=== PATIENT | female | born 1965 | race Caucasian/White ===

== ENCOUNTER 2017-12-23 06:00 | Inpatient (IN) | payer BC ==
[~2017-12-23] VITALS: Ht 165.1 cm; Wt 92.0 kg
[2017-12-23] VITALS (20 sets, daily range): BP systolic 67–125; BP diastolic 39–80
[2017-12-23 07:04] LABS: HEMATOCRIT 29.7 % (36.0-46.0); HEMOGLOBIN 10.3 G/DL (11.9-15.5); MCH 32.4 PG (29.0-34.0); MCHC 34.7 G/DL (30.0-36.0); MCV 93.4 FL (83-99); NRBC (%) 0.6 /100 WBC (0-0); PLATELET COUNT 339 K/uL (156-360); RBC DIS.WIDTH-CV 16.4 % (11.8-14.6); RBC DIS.WIDTH-SD 51.1 % (39-53); RED BLOOD COUNT 3.18 M/uL (3.80-5.20); WHITE BLOOD COUNT 8.7 K/uL (4.1-10.2)
[2017-12-23 07:33] LABS: CHLORIDE 111 MEQ/L (99-109); CREATININE 1.1 MG/DL (0.6-1.3); GFR ESTIMATE (CALCULATED) 56 mL/min/; GLUCOSE 68 mg/dL (70-99); POTASSIUM 3.4 MEQ/L (3.7-5.4); SODIUM 137 MEQ/L (136-147); UREA NITROGEN (BUN) 16 mg/dL (9-23)
[2017-12-23 07:52] LABS: ANISOCYTOSIS 2+; BAND NEUTROPHILS 39.5 % (0-8.0); EOSINOPHIL ABS CT 0; LYMPHOCYTES 11.4 % (15.0-45.0); MACROCYTES 2+; MYELOCYTES 0.9 %; NUCLEATED RBC'S 1.8; POLYCHROMASIA 1+; SEG.NEUTROPHILS 41.2 % (46.0-76.0); TARGET CELLS 1+
[2017-12-23] MEDS ORDERED: VITAMIN B-1100 MG PO (07:57)
[2017-12-23] MEDS ORDERED: OLANZAPINE20 MG PO (07:57)
[2017-12-23] MEDS ORDERED: VITAMIN B-6100 MG PO (07:57)
[2017-12-23] MEDS ORDERED: PANTOPRAZOLE SO40 MG PO (07:58)
[2017-12-23] MEDS ORDERED: LEVOTHYROXINE88 MCG PO (07:58)
[2017-12-23] MEDS ORDERED: LEVETIRACETAM500 MG PO (07:58)
[2017-12-23] MEDS ORDERED: SPIRONOLACTONE100 MG PO (07:58)
[2017-12-23] MEDS ORDERED: FLUOXETINE HCL20 MG PO (07:58)
[2017-12-23] MEDS ORDERED: ESZOPICLONE3 MG PO (07:59)
[2017-12-23] MEDS ORDERED: CREON DR 12,001 EAC1 PO (07:59)
[2017-12-23] MEDS ORDERED: SUMATRIPTAN SU100 MG PO (08:00)
[2017-12-23] MEDS ORDERED: VITAMIN D2000 UNI1 PO (08:00)
[2017-12-23] MEDS ORDERED: LYRICA50 MG PO (08:01)
[2017-12-23 08:08] LABS: APPEARANCE CLEAR ((CLEAR)); BILIRUBIN NEGATIVE; BLOOD LARGE; COLOR YELLOW ((YELLOW)); GLUCOSE (STRIP) NEGATIVE; KETONES NEGATIVE; LEUKOCYTES NEGATIVE; NITRITE NEGATIVE; PROTEIN (STRIP) NEGATIVE; SPECIFIC GRAVITY 1.003 (1.000-1.030); UROBILINOGEN 0.2 MG/DL (0.2-1.0)
[2017-12-23 08:17] LABS: BACTERIA RARE /HPF; EPITHELIAL CELLS NONE SEEN /HPF; MUCUS NONE SEEN /LPF; RED BLOOD CELLS 0-5 /HPF (0-5); UCUL ADDED? NO; WHITE BLOOD CELLS 0-5 /HPF (0-5)
[2017-12-23 08:54] LABS: INTER. NORMALIZED RATIO 2.1
[2017-12-23 09:33] LABS: CREATININE 1.1 MG/DL (0.6-1.3); GFR ESTIMATE (CALCULATED) 56 mL/min/; GLUCOSE 60 mg/dL (70-99); UREA NITROGEN (BUN) 15 mg/dL (9-23)
[2017-12-23 09:34] LABS: ALBUMIN < 1.5 G/DL (3.2-4.8); ALKALINE PHOSPHATASE 137 IU/L (3-129); ALT (GPT) 39 IU/L (3-49); AST (GOT) 36 IU/L (2-34); CHLORIDE 115 MEQ/L (99-109); POTASSIUM 3.6 MEQ/L (3.7-5.4); SODIUM 139 MEQ/L (136-147); TOTAL BILIRUBIN 0.6 MG/DL (0.0-1.0); TOTAL PROTEIN 3.2 G/DL (6.4-8.3)
[2017-12-23 10:36] LABS: PTT 43.3 SEC (25-37)
[2017-12-23 11:28] LABS: D-DIMER LATEX NEGATIVE
[2017-12-23 11:38] LABS: FIBRINOGEN 158 mg/dL (150-450)
[2017-12-23 13:34] LABS: COMMENTS - BLOOD GASES A+C+; DEVICE RA; SITE RR; TOTAL RESP RATE 15 resp/min
[2017-12-23 13:35] LABS: BASE EXCESS -14.5 mEq/L (-3 to +3); BICARBONATE 10.8 mEq/L (22-26); METHEMOGLOBIN 1.1 % (0-1.5); O2 SATURATION (CALCULATED) 89.7 % (95-99); PCO2 23 mm Hg (35-45); PO2 63 mm Hg (80-100); pH 7.28 (7.35-7.45)
[2017-12-23 15:29] LABS: CHLORIDE 119 mEq/L (99-109); SODIUM 144 mEq/L (136-147)
[2017-12-23 15:30] LABS: MAGNESIUM 1.2 mg/dL (1.3-2.7)
[2017-12-23 15:35] LABS: CREATININE 0.9 mg/dL (0.6-1.3); GFR ESTIMATE (CALCULATED) > 59 mL/min/; PHOSPHORUS 3.2 mg/dL (2.5-4.9); TROP-I INTERPRETATION NEGATIVE; TROPONIN-I < 0.01 ng/mL (0.0-0.30)
[2017-12-23 15:36] LABS: UREA NITROGEN (BUN) 13 mg/dL (9-23)
[2017-12-23 15:38] LABS: CREATINE KINASE 415 IU/L (1-294)
[2017-12-23 15:40] LABS: GLUCOSE 120 mg/dL (70-99); POTASSIUM 2.6 mEq/L (3.7-5.4)
[2017-12-23 15:57] LABS: BASE EXCESS -15.2 mEq/L (-3 to +3); BICARBONATE 10.1 mEq/L (22-26); PCO2 23 mm Hg (35-45); PO2 377 mm Hg (80-100)
[2017-12-23 15:58] LABS: pH 7.25 (7.35-7.45)
[2017-12-23 16:31] LABS: HIGH-SENS C-REACTIVE PROTEIN > 8.00 MG/DL (0.02-0.20); TRIGLYCERIDES 165 MG/DL (Normal: <150)
[2017-12-23 18:24] LABS: IMMUNOGLOBULIN G 820 MG/DL (650-1600); IMMUNOGLOBULIN M 71 MG/DL (50-300)
[2017-12-23 21:17] LABS: HEMATOCRIT 23.2 % (36.0-46.0); MCH 32.7 PG (29.0-34.0); MCHC 35.3 G/DL (30.0-36.0); MCV 92.4 FL (83-99); PLATELET COUNT 242 K/uL (156-360); RBC DIS.WIDTH-CV 16.6 % (11.8-14.6); WHITE BLOOD COUNT 9.2 K/uL (4.1-10.2)
[2017-12-23 21:28] LABS: CHLORIDE 118 mEq/L (99-109); POTASSIUM 3.1 mEq/L (3.7-5.4); SODIUM 148 mEq/L (136-147)
[2017-12-23 21:30] LABS: GLUCOSE 116 mg/dL (70-99)
[2017-12-23 21:34] LABS: CREATININE 0.8 mg/dL (0.6-1.3); GFR ESTIMATE (CALCULATED) > 59 mL/min/; PHOSPHORUS 3.4 mg/dL (2.5-4.9)
[2017-12-23 21:35] LABS: UREA NITROGEN (BUN) 12 mg/dL (9-23)
[2017-12-23 21:45] LABS: MAGNESIUM 1.7 mg/dL (1.3-2.7)
[2017-12-23 22:20] LABS: ANISOCYTOSIS 2+; BAND NEUTROPHILS 21.3 % (0-8.0); BURR CELLS 1+; EOSINOPHIL ABS CT 0; LYMPHOCYTES 4.6 % (15.0-45.0); METAMYELOCYTES 4.6 %; MONOCYTES 2.8 % (0-9.0); MYELOCYTES 0.9 %; NUCLEATED RBC'S 0.9; PLAT.SUFFICIENCY ADEQUATE; PLATELET CLUMPS PRESENT - PLATELET COUNT APPEARS ADEQUATE; POIKILOCYTOSIS 1+; TARGET CELLS 1+
[2017-12-23 22:21] LABS: HEMOGLOBIN 8.2 G/DL (11.9-15.5); RED BLOOD COUNT 2.51 M/uL (3.80-5.20); SEG.NEUTROPHILS 65.8 % (46.0-76.0)
[2017-12-24] VITALS (7 sets, daily range): BP systolic 80–122; BP diastolic 57–80
[2017-12-24 04:10] LABS: TROP-I INTERPRETATION NEGATIVE; TROPONIN-I < 0.01 ng/mL (0.0-0.30)
[2017-12-24 04:24] LABS: CHLORIDE 120 mEq/L (99-109); POTASSIUM 3.4 mEq/L (3.7-5.4); SODIUM 148 mEq/L (136-147)
[2017-12-24 04:25] LABS: MAGNESIUM 1.6 mg/dL (1.3-2.7)
[2017-12-24 04:26] LABS: GLUCOSE 143 mg/dL (70-99)
[2017-12-24 04:30] LABS: CREATININE 0.8 mg/dL (0.6-1.3); GFR ESTIMATE (CALCULATED) > 59 mL/min/
[2017-12-24 04:31] LABS: UREA NITROGEN (BUN) 11 mg/dL (9-23)
[2017-12-24 08:49] LABS: HEMATOCRIT 22.5 % (36.0-46.0); HEMOGLOBIN 7.7 G/DL (11.9-15.5); MCH 32.5 PG (29.0-34.0); MCHC 34.2 G/DL (30.0-36.0); MCV 94.9 FL (83-99); PLATELET COUNT 210 K/uL (156-360); RBC DIS.WIDTH-CV 17.2 % (11.8-14.6); RBC DIS.WIDTH-SD 53.1 % (39-53); RED BLOOD COUNT 2.37 M/uL (3.80-5.20); WHITE BLOOD COUNT 11.7 K/uL (4.1-10.2)
[2017-12-24 09:22] LABS: ABS NEUTROPHIL COUNT 9.1; ANISOCYTOSIS 3+; BAND NEUTROPHILS 20.4 % (0-8.0); EOSINOPHIL ABS CT 0; LYMPHOCYTES 11.1 % (15.0-45.0); MACROCYTES 3+; METAMYELOCYTES 4.6 %; MONOCYTES 3.7 % (0-9.0); MYELOCYTES 2.8 %; NUCLEATED RBC'S 0.9; PLAT.SUFFICIENCY ADEQUATE; SEG.NEUTROPHILS 57.4 % (46.0-76.0); SMUDGE CELLS 63.9
[2017-12-24 09:23] LABS: ALBUMIN 2.2 G/DL (3.2-4.8); ALKALINE PHOSPHATASE 122 IU/L (3-129); ALT (GPT) 29 IU/L (3-49); AST (GOT) 25 IU/L (2-34); CHLORIDE 117 MEQ/L (99-109); CREATININE 0.9 MG/DL (0.6-1.3); GFR ESTIMATE (CALCULATED) > 59 mL/min/; GLUCOSE 153 mg/dL (70-99); MAGNESIUM 2.1 mg/dl (1.3-2.7); PHOSPHORUS 2.5 mg/dL (2.5-4.9); POTASSIUM 3.5 MEQ/L (3.7-5.4); SODIUM 148 MEQ/L (136-147); UREA NITROGEN (BUN) 11 mg/dL (9-23)
[2017-12-24 09:25] LABS: TOTAL BILIRUBIN 1.6 MG/DL (0.0-1.0); TOTAL PROTEIN 3.9 G/DL (6.4-8.3)
[2017-12-24 23:31] LABS: CHLORIDE 115 mEq/L (99-109); POTASSIUM 3.6 mEq/L (3.7-5.4); SODIUM 146 mEq/L (136-147)
[2017-12-24 23:36] LABS: PHOSPHORUS 2.4 mg/dL (2.5-4.9)
[2017-12-24 23:37] LABS: CREATININE 0.8 mg/dL (0.6-1.3); GFR ESTIMATE (CALCULATED) > 59 mL/min/
[2017-12-24 23:38] LABS: UREA NITROGEN (BUN) 10 mg/dL (9-23)
[2017-12-24 23:42] LABS: GLUCOSE 109 mg/dL (70-99); MAGNESIUM 1.9 mg/dL (1.3-2.7)
[2017-12-25] VITALS: BP 91/69
[2017-12-25 04:00] VITALS: BP 98/74
[2017-12-25 06:43] LABS: HEMATOCRIT 23.2 % (36.0-46.0); HEMOGLOBIN 7.8 G/DL (11.9-15.5); MCH 32.5 PG (29.0-34.0); MCHC 33.6 G/DL (30.0-36.0); MCV 96.7 FL (83-99); PLATELET COUNT 171 K/uL (156-360); RBC DIS.WIDTH-CV 17.6 % (11.8-14.6); RBC DIS.WIDTH-SD 56.8 % (39-53); WHITE BLOOD COUNT 18.2 K/uL (4.1-10.2)
[2017-12-25 07:11] LABS: ABS NEUTROPHIL COUNT 16.4; ANISOCYTOSIS 3+; BAND NEUTROPHILS 17.1 % (0-8.0); EOSINOPHIL ABS CT 0; LYMPHOCYTES 3.6 % (15.0-45.0); MACROCYTES 3+; MONOCYTES 5.4 % (0-9.0); MYELOCYTES 0.9 %; NUCLEATED RBC'S 0.9; PLAT.SUFFICIENCY ADEQUATE; SMUDGE CELLS 15.3; TARGET CELLS 1+
[2017-12-25 07:17] LABS: ALBUMIN 2.7 G/DL (3.2-4.8); ALKALINE PHOSPHATASE 173 IU/L (3-129); ALT (GPT) 23 IU/L (3-49); AST (GOT) 23 IU/L (2-34); CHLORIDE 114 MEQ/L (99-109); CREATININE 0.8 MG/DL (0.6-1.3); GFR ESTIMATE (CALCULATED) > 59 mL/min/; GLUCOSE 120 mg/dL (70-99); MAGNESIUM 1.7 mg/dl (1.3-2.7); PHOSPHORUS 3.2 mg/dL (2.5-4.9); POTASSIUM 3.9 MEQ/L (3.7-5.4); SODIUM 148 MEQ/L (136-147); TOTAL PROTEIN 4.1 G/DL (6.4-8.3); UREA NITROGEN (BUN) 9 mg/dL (9-23)
[2017-12-25 08:00] VITALS: BP 107/63
[2017-12-25 11:07] LABS: INTER. NORMALIZED RATIO 1.3
[2017-12-25 11:09] LABS: PTT 38.5 SEC (25-37)
[2017-12-25 11:26] LABS: DIRECT BILIRUBIN 1.2 mg/dL (0.0-0.3)
[2017-12-25 12:00] VITALS: BP 90/66
[2017-12-25 12:00] LABS: FIBRINOGEN 194 mg/dL (150-450)
[2017-12-25 12:08] LABS: D-DIMER LATEX POSITIVE
[2017-12-25 12:09] LABS: SCHISTOCYTES NONE SEEN
[2017-12-25 16:00] VITALS: BP 85/68
[2017-12-25 17:56] LABS: INTER. NORMALIZED RATIO 1.4
[2017-12-25 17:59] LABS: CHLORIDE 113 mEq/L (99-109); POTASSIUM 3.5 mEq/L (3.7-5.4); SODIUM 146 mEq/L (136-147)
[2017-12-25 18:01] LABS: GLUCOSE 105 mg/dL (70-99)
[2017-12-25 18:02] LABS: MAGNESIUM 1.5 mg/dL (1.3-2.7)
[2017-12-25 18:04] LABS: CREATININE 0.8 mg/dL (0.6-1.3); GFR ESTIMATE (CALCULATED) > 59 mL/min/; PHOSPHORUS 3.2 mg/dL (2.5-4.9)
[2017-12-25 18:05] LABS: UREA NITROGEN (BUN) 10 mg/dL (9-23)
[2017-12-25 18:14] LABS: PTT 166.9 SEC (25-37)
[2017-12-25 20:02] VITALS: BP 81/70
[2017-12-26] VITALS (16 sets, daily range): BP systolic 82–135; BP diastolic 48–94
[2017-12-26 06:08] LABS: MCH 31.7 PG (29.0-34.0); MCHC 32.9 G/DL (30.0-36.0); MCV 96.3 FL (83-99); NRBC (%) 0.1 /100 WBC (0-0); RBC DIS.WIDTH-CV 17.3 % (11.8-14.6); RBC DIS.WIDTH-SD 56.5 % (39-53); RED BLOOD COUNT 2.18 M/uL (3.80-5.20); WHITE BLOOD COUNT 13.9 K/uL (4.1-10.2)
[2017-12-26 06:10] LABS: HEMOGLOBIN 6.9 G/DL (11.9-15.5)
[2017-12-26 06:27] LABS: ALBUMIN 3.1 G/DL (3.2-4.8); ALKALINE PHOSPHATASE 174 IU/L (3-129); ALT (GPT) 21 IU/L (3-49); AST (GOT) 31 IU/L (2-34); CHLORIDE 111 MEQ/L (99-109); CREATININE 0.9 MG/DL (0.6-1.3); GFR ESTIMATE (CALCULATED) > 59 mL/min/; GLUCOSE 108 mg/dL (70-99); MAGNESIUM 1.8 mg/dl (1.3-2.7); PHOSPHORUS 2.8 mg/dL (2.5-4.9); POTASSIUM 3.3 MEQ/L (3.7-5.4); SODIUM 147 MEQ/L (136-147); TOTAL BILIRUBIN 1.6 MG/DL (0.0-1.0); TOTAL PROTEIN 4.2 G/DL (6.4-8.3); UREA NITROGEN (BUN) 10 mg/dL (9-23)
[2017-12-26 06:43] LABS: ABS NEUTROPHIL COUNT 12.3; ANISOCYTOSIS 3+; BAND NEUTROPHILS 25.2 % (0-8.0); BASOPH.STIPPLING 1+; EOSINOPHIL ABS CT 0; HELMET CELLS 1+; LYMPHOCYTES 7.8 % (15.0-45.0); MACROCYTES 3+; MONOCYTES 3.5 % (0-9.0); NUCLEATED RBC'S 1.7; PLAT.SUFFICIENCY DECREASED; POIKILOCYTOSIS 1+; POLYCHROMASIA 1+; SCHISTOCYTES 1+; SEG.NEUTROPHILS 63.5 % (46.0-76.0); TARGET CELLS 2+
[2017-12-26 06:54] LABS: PLATELET COUNT 115 K/uL (156-360)
[2017-12-26 16:17] LABS: CHLORIDE 111 MEQ/L (99-109); CREATININE 0.9 MG/DL (0.6-1.3); GFR ESTIMATE (CALCULATED) > 59 mL/min/; GLUCOSE 121 mg/dL (70-99); POTASSIUM 3.8 MEQ/L (3.7-5.4); SODIUM 147 MEQ/L (136-147); UREA NITROGEN (BUN) 11 mg/dL (9-23)
[2017-12-26 17:57] LABS: HEMATOCRIT 24.4 % (36.0-46.0); HEMOGLOBIN 8.4 G/DL (11.9-15.5)
[2017-12-26 17:58] LABS: MCV 92.1 FL (83-99)
[2017-12-26 18:04] LABS: CHLORIDE 111 mEq/L (99-109); POTASSIUM 3.5 mEq/L (3.7-5.4); SODIUM 146 mEq/L (136-147)
[2017-12-26 18:06] LABS: GLUCOSE 119 mg/dL (70-99)
[2017-12-26 18:09] LABS: PHOSPHORUS 2.6 mg/dL (2.5-4.9)
[2017-12-26 18:10] LABS: GFR ESTIMATE (CALCULATED) > 59 mL/min/
[2017-12-26 18:11] LABS: UREA NITROGEN (BUN) 11 mg/dL (9-23)
[2017-12-26 18:13] LABS: MAGNESIUM 1.8 mg/dL (1.3-2.7)
[2017-12-27] VITALS (12 sets, daily range): BP systolic 94–110; BP diastolic 59–77
[2017-12-27 05:19] LABS: HEMATOCRIT 25.7 % (36.0-46.0); HEMOGLOBIN 8.4 G/DL (11.9-15.5); MCH 30.9 PG (29.0-34.0); MCHC 32.7 G/DL (30.0-36.0); MCV 94.5 FL (83-99); NRBC (%) 0.2 /100 WBC (0-0); PLATELET COUNT 84 K/uL (156-360); RBC DIS.WIDTH-CV 18.2 % (11.8-14.6); RBC DIS.WIDTH-SD 58.5 % (39-53); WHITE BLOOD COUNT 16.8 K/uL (4.1-10.2)
[2017-12-27 05:30] LABS: RED BLOOD COUNT 2.72 M/uL (3.80-5.20)
[2017-12-27 06:20] LABS: ALBUMIN 3.5 G/DL (3.2-4.8); ALKALINE PHOSPHATASE 172 IU/L (3-129); ALT (GPT) 19 IU/L (3-49); AST (GOT) 28 IU/L (2-34); CHLORIDE 107 MEQ/L (99-109); GFR ESTIMATE (CALCULATED) > 59 mL/min/; GLUCOSE 104 mg/dL (70-99); MAGNESIUM 1.6 mg/dl (1.3-2.7); PHOSPHORUS 2.9 mg/dL (2.5-4.9); POTASSIUM 3.3 MEQ/L (3.7-5.4); SODIUM 146 MEQ/L (136-147); TOTAL BILIRUBIN 1.3 MG/DL (0.0-1.0); UREA NITROGEN (BUN) 13 mg/dL (9-23)
[2017-12-27 06:22] LABS: TOTAL PROTEIN 5.1 G/DL (6.4-8.3)
[2017-12-27 07:09] LABS: ABS NEUTROPHIL COUNT 14.9; ANISOCYTOSIS 2+; BAND NEUTROPHILS 29.2 % (0-8.0); EOSINOPHIL ABS CT 0; LYMPHOCYTES 9.7 % (15.0-45.0); MACROCYTES 2+; MICROCYTOSIS 1+; MONOCYTES 1.8 % (0-9.0); SEG.NEUTROPHILS 59.3 % (46.0-76.0); TARGET CELLS 2+
[2017-12-27 07:59] LABS: FERRITIN 150 NG/ML (10-291)
[2017-12-27 08:05] LABS: FOLIC ACID (FOLATE) > 22.0 NG/ML (5.0-22.0)
[2017-12-27 18:21] LABS: CHLORIDE 108 mEq/L (99-109); SODIUM 148 mEq/L (136-147)
[2017-12-27 18:22] LABS: POTASSIUM 2.3 mEq/L (3.7-5.4)
[2017-12-27 18:24] LABS: GLUCOSE 142 mg/dL (70-99)
[2017-12-27 18:27] LABS: CREATININE 1.1 mg/dL (0.6-1.3); GFR ESTIMATE (CALCULATED) 56 mL/min/; PHOSPHORUS 2.5 mg/dL (2.5-4.9)
[2017-12-27 18:28] LABS: UREA NITROGEN (BUN) 16 mg/dL (9-23)
[2017-12-28 01:50] LABS: CHLORIDE 106 mEq/L (99-109); SODIUM 148 mEq/L (136-147)
[2017-12-28 01:55] LABS: CREATININE 1.1 mg/dL (0.6-1.3); GFR ESTIMATE (CALCULATED) 56 mL/min/
[2017-12-28 02:07] LABS: COMMENTS - BLOOD GASES C+; DEVICE VENT; FI02 100 %; MODE BILEVEL; SITE ALINE; pH 7.51 (7.35-7.45)
[2017-12-28 02:08] LABS: BASE EXCESS 6.8 mEq/L (-3 to +3); BICARBONATE 30.3 mEq/L (22-26); CARBOXY HGB 2.1 % (0-5); METHEMOGLOBIN 0.9 % (0-1.5); O2 SATURATION (CALCULATED) 96.1 % (95-99); PCO2 38 mm Hg (35-45); PO2 77 mm Hg (80-100)
[2017-12-28 02:08] LABS: POTASSIUM 3.3 mEq/L (3.7-5.4)
[2017-12-28 02:14] LABS: GLUCOSE 115 mg/dL (70-99)
[2017-12-28 02:19] LABS: UREA NITROGEN (BUN) 17 mg/dL (9-23)
[2017-12-28 06:30] LABS: PTT 63.5 SEC (25-37)
[2017-12-28 06:38] LABS: HEMATOCRIT 28.2 % (36.0-46.0); HEMOGLOBIN 9.3 G/DL (11.9-15.5); MCH 31.1 PG (29.0-34.0); MCV 94.3 FL (83-99); NRBC (%) 0.4 /100 WBC (0-0); PLATELET COUNT 81 K/uL (156-360); RBC DIS.WIDTH-CV 18.1 % (11.8-14.6); RBC DIS.WIDTH-SD 59.9 % (39-53); RED BLOOD COUNT 2.99 M/uL (3.80-5.20); WHITE BLOOD COUNT 18.4 K/uL (4.1-10.2)
[2017-12-28 07:42] LABS: ABS NEUTROPHIL COUNT 16.1; ANISOCYTOSIS 2+; BAND NEUTROPHILS 13.4 % (0-8.0); EOSINOPHIL ABS CT 0; HEMATOLOGY COMMENT 1 SN; HYPOCHROMASIA 1+; LYMPHOCYTES 11.6 % (15.0-45.0); MACROCYTES 2+; MICROCYTOSIS 1+; MONOCYTES 0.9 % (0-9.0); NUCLEATED RBC'S 1.8; PLAT.SUFFICIENCY DECREASED; POLYCHROMASIA 2+; SEG.NEUTROPHILS 74.1 % (46.0-76.0); SPHEROCYTES 1+; TARGET CELLS 2+; TOX.VACUOLIZATION 1+; TOXIC GRANULATION 2+
[2017-12-28 08:35] LABS: ALBUMIN 3.6 G/DL (3.2-4.8); ALKALINE PHOSPHATASE 144 IU/L (3-129); ALT (GPT) 18 IU/L (3-49); AST (GOT) 33 IU/L (2-34); CHLORIDE 105 MEQ/L (99-109); GFR ESTIMATE (CALCULATED) > 59 mL/min/; GLUCOSE 99 mg/dL (70-99); MAGNESIUM 1.7 mg/dl (1.3-2.7); PHOSPHORUS 1.9 mg/dL (2.5-4.9); POTASSIUM 3.5 MEQ/L (3.7-5.4); SODIUM 148 MEQ/L (136-147); TOTAL BILIRUBIN 1.1 MG/DL (0.0-1.0); TOTAL PROTEIN 4.8 G/DL (6.4-8.3); UREA NITROGEN (BUN) 17 mg/dL (9-23)
[2017-12-28 15:10] LABS: DEVICE VENT; FI02 80 %; SITE ALINE
[2017-12-28 15:11] LABS: MECHANICAL RATE 16 resp/min; MODE BILEVEL; PCO2 39 mm Hg (35-45); PRES. SUPPORT 14 CM/H2O; TOTAL RESP RATE 22 resp/min; pH 7.53 (7.35-7.45)
[2017-12-28 15:12] LABS: BASE EXCESS 9.2 mEq/L (-3 to +3); BICARBONATE 32.6 mEq/L (22-26); PO2 307 mm Hg (80-100)
[2017-12-28 15:41] LABS: CHLORIDE 105 mEq/L (99-109); POTASSIUM 3.6 mEq/L (3.7-5.4); SODIUM 149 mEq/L (136-147)
[2017-12-28 15:43] LABS: GLUCOSE 101 mg/dL (70-99)
[2017-12-28 15:47] LABS: CREATININE 1.2 mg/dL (0.6-1.3); GFR ESTIMATE (CALCULATED) 50 mL/min/
[2017-12-28 15:48] LABS: UREA NITROGEN (BUN) 19 mg/dL (9-23)
[2017-12-28 15:53] LABS: PHOSPHORUS 3.4 mg/dL (2.5-4.9)
[2017-12-28 15:54] LABS: MAGNESIUM 2.4 mg/dL (1.3-2.7)
[2017-12-28 16:13] LABS: HIGH-SENS C-REACTIVE PROTEIN > 8.00 MG/DL (0.02-0.20)
[2017-12-28 16:26] LABS: C DIFF TOXIN POSITIVE (NEGATIVE)
[2017-12-28 18:17] LABS: DEVICE VENT; FI02 60 %; MECHANICAL RATE 20 resp/min; MODE ACVC; PEEP 10 CM/H20; SITE ALINE; TIDAL VOLUME 450 ML; TOTAL RESP RATE 33 resp/min
[2017-12-28 18:18] LABS: PCO2 40 mm Hg (35-45); pH 7.55 (7.35-7.45)
[2017-12-28 18:19] LABS: BASE EXCESS 11.6 mEq/L (-3 to +3); CARBOXY HGB 2.5 % (0-5); METHEMOGLOBIN 1.2 % (0-1.5); O2 SATURATION (CALCULATED) 88.1 % (95-99); PO2 49 mm Hg (80-100)
[2017-12-28 23:39] LABS: SITE R FEM ALINE
[2017-12-28 23:40] LABS: DEVICE VENT; FI02 100 %; MECHANICAL RATE 12 resp/min; MODE BILEVEL; PCO2 44 mm Hg (35-45); PEEP 5 CM/H20; PO2 163 mm Hg (80-100); PRES. SUPPORT 14 CM/H2O; TOTAL RESP RATE 26 resp/min; pH 7.53 (7.35-7.45)
[2017-12-28 23:41] LABS: BASE EXCESS 12.9 mEq/L (-3 to +3); BICARBONATE 36.8 mEq/L (22-26); CARBOXY HGB 2.1 % (0-5); O2 SATURATION (CALCULATED) 98.9 % (95-99)
[2017-12-29] VITALS (7 sets, daily range): BP systolic 106–121; BP diastolic 63–84
[2017-12-29 06:37] LABS: HEMATOCRIT 21.6 % (36.0-46.0); MCHC 32.9 G/DL (30.0-36.0); MCV 94.3 FL (83-99); NRBC (%) 0.3 /100 WBC (0-0); PLATELET COUNT 94 K/uL (156-360); RBC DIS.WIDTH-CV 17.7 % (11.8-14.6); RBC DIS.WIDTH-SD 58.2 % (39-53); WHITE BLOOD COUNT 20.8 K/uL (4.1-10.2)
[2017-12-29 06:38] LABS: HEMOGLOBIN 7.1 G/DL (11.9-15.5); RED BLOOD COUNT 2.29 M/uL (3.80-5.20)
[2017-12-29 06:54] LABS: ALBUMIN 3.9 G/DL (3.2-4.8); ALKALINE PHOSPHATASE 156 IU/L (3-129); ALT (GPT) 20 IU/L (3-49); AST (GOT) 36 IU/L (2-34); CHLORIDE 103 MEQ/L (99-109); CREATININE 1.1 MG/DL (0.6-1.3); GFR ESTIMATE (CALCULATED) 56 mL/min/; GLUCOSE 103 mg/dL (70-99); PREALBUMIN 12.2 mg/dL (10-40); SODIUM 155 MEQ/L (136-147); TOTAL BILIRUBIN 0.9 MG/DL (0.0-1.0); TOTAL PROTEIN 5.2 G/DL (6.4-8.3); UREA NITROGEN (BUN) 22 mg/dL (9-23)
[2017-12-29 07:02] LABS: MAGNESIUM 2.1 mg/dl (1.3-2.7); PHOSPHORUS 3.4 mg/dL (2.5-4.9); POTASSIUM 2.2 MEQ/L (3.7-5.4)
[2017-12-29 07:24] LABS: ABS NEUTROPHIL COUNT 19.8; ANISOCYTOSIS 1+; EOSINOPHIL ABS CT 0; LYMPHOCYTES 3.1 % (15.0-45.0); MACROCYTES 1+; METAMYELOCYTES 0.9 %; MICROCYTOSIS 1+; MONOCYTES 0.5 % (0-9.0); MYELOCYTES 0.4 %; PLAT.SUFFICIENCY DECREASED; POIKILOCYTOSIS 2+; POLYCHROMASIA 1+; SEG.NEUTROPHILS 86.1 % (46.0-76.0); SPHEROCYTES 1+; TARGET CELLS 2+
[2017-12-29 08:10] LABS: HEMATOCRIT 22.1 % (36.0-46.0); HEMOGLOBIN 7.6 G/DL (11.9-15.5); MCH 31.9 PG (29.0-34.0); MCHC 34.4 G/DL (30.0-36.0); MCV 92.9 FL (83-99); NRBC (%) 0.3 /100 WBC (0-0); PLATELET COUNT 99 K/uL (156-360); RBC DIS.WIDTH-CV 17.6 % (11.8-14.6); RED BLOOD COUNT 2.38 M/uL (3.80-5.20); WHITE BLOOD COUNT 23.6 K/uL (4.1-10.2)
[2017-12-29 08:51] LABS: ABS NEUTROPHIL COUNT 20.2; ANISOCYTOSIS 2+; BAND NEUTROPHILS 10.6 % (0-8.0); BASOPHILS 0.9 %; EOSINOPHIL ABS CT 0; LYMPHOCYTES 10.6 % (15.0-45.0); MACROCYTES 1+; MONOCYTES 3.1 % (0-9.0); NUCLEATED RBC'S 0.4; PLAT.SUFFICIENCY DECREASED; POIKILOCYTOSIS 2+; POLYCHROMASIA 1+; SEG.NEUTROPHILS 74.8 % (46.0-76.0); SPHEROCYTES 1+; TARGET CELLS 2+; TOXIC GRANULATION 1+
[2017-12-29 15:26] LABS: CHLORIDE 104 MEQ/L (99-109); GFR ESTIMATE (CALCULATED) > 59 mL/min/; GLUCOSE 132 mg/dL (70-99); POTASSIUM 2.7 MEQ/L (3.7-5.4); SODIUM 153 MEQ/L (136-147); UREA NITROGEN (BUN) 25 mg/dL (9-23)
[2017-12-29 18:52] LABS: GFR ESTIMATE (CALCULATED) 56 mL/min/
[2017-12-29 22:16] LABS: CHLORIDE 106 MEQ/L (99-109); GLUCOSE 131 mg/dL (70-99); PHOSPHORUS 2.9 mg/dL (2.5-4.9); POTASSIUM 3.3 MEQ/L (3.7-5.4); SODIUM 153 MEQ/L (136-147); UREA NITROGEN (BUN) 26 mg/dL (9-23)
[2017-12-30] VITALS (17 sets, daily range): BP systolic 102–129; BP diastolic 59–90
[2017-12-30 06:14] LABS: ALBUMIN 3.6 G/DL (3.2-4.8); ALKALINE PHOSPHATASE 154 IU/L (3-129); ALT (GPT) 22 IU/L (3-49); AST (GOT) 31 IU/L (2-34); CHLORIDE 103 MEQ/L (99-109); GFR ESTIMATE (CALCULATED) > 59 mL/min/; GLUCOSE 105 mg/dL (70-99); PHOSPHORUS 2.9 mg/dL (2.5-4.9); POTASSIUM 2.7 MEQ/L (3.7-5.4); SODIUM 153 MEQ/L (136-147); TOTAL BILIRUBIN 0.8 MG/DL (0.0-1.0); TOTAL PROTEIN 5.1 G/DL (6.4-8.3); TRIGLYCERIDES 59 MG/DL (Normal: <150); UREA NITROGEN (BUN) 30 mg/dL (9-23)
[2017-12-30 06:22] LABS: HEMATOCRIT 21.8 % (36.0-46.0); MCH 30.4 PG (29.0-34.0); MCHC 31.7 G/DL (30.0-36.0); NRBC (%) 0.6 /100 WBC (0-0); PLATELET COUNT 118 K/uL (156-360); RBC DIS.WIDTH-CV 17.5 % (11.8-14.6); RBC DIS.WIDTH-SD 56.7 % (39-53); RED BLOOD COUNT 2.27 M/uL (3.80-5.20); WHITE BLOOD COUNT 25.3 K/uL (4.1-10.2)
[2017-12-30 06:25] LABS: HEMOGLOBIN 6.9 G/DL (11.9-15.5)
[2017-12-30 07:10] LABS: ANISOCYTOSIS 1+; ATYPICAL LYMPHOCYTE 0.4 %; BAND NEUTROPHILS 5.2 % (0-8.0); BASOPH.STIPPLING 1+; BASOPHILS 0.4 %; EOSINOPHIL ABS CT 0; HYPOCHROMASIA 2+; MACROCYTES 1+; METAMYELOCYTES 0.9 %; MICROCYTOSIS 1+; MONOCYTES 0.9 % (0-9.0); MYELOCYTES 0.4 %; NUCLEATED RBC'S 0.4; PLAT.SUFFICIENCY DECREASED; POIKILOCYTOSIS 1+; POLYCHROMASIA 1+; SEG.NEUTROPHILS 81.8 % (46.0-76.0); TARGET CELLS 1+
[2017-12-30 08:57] LABS: VANCOMYCIN, TROUGH 13.4 MCG/ML (10-20)
[2017-12-30 14:09] LABS: DIRECT BILIRUBIN 0.4 mg/dL (0.0-0.3)
[2017-12-30 17:15] LABS: CHLORIDE 105 MEQ/L (99-109); GFR ESTIMATE (CALCULATED) > 59 mL/min/; GLUCOSE 135 mg/dL (70-99); POTASSIUM 2.5 MEQ/L (3.7-5.4); SODIUM 152 MEQ/L (136-147); UREA NITROGEN (BUN) 33 mg/dL (9-23)
[2017-12-30 19:07] LABS: ALBUMIN 3.5 G/DL (3.2-4.8); CHLORIDE 106 MEQ/L (99-109); DIRECT BILIRUBIN 0.4 mg/dL (0.0-0.3); POTASSIUM 2.5 MEQ/L (3.7-5.4); SODIUM 155 MEQ/L (136-147); TOTAL BILIRUBIN 0.9 MG/DL (0.0-1.0)
[2017-12-30 19:13] LABS: ALKALINE PHOSPHATASE 158 IU/L (3-129); ALT (GPT) 23 IU/L (3-49); AST (GOT) 33 IU/L (2-34); GFR ESTIMATE (CALCULATED) > 59 mL/min/; GLUCOSE 119 mg/dL (70-99); LACTATE DEHYDROGENASE 483 IU/L (20-246); PHOSPHORUS 2.3 mg/dL (2.5-4.9); TOTAL PROTEIN 5.1 G/DL (6.4-8.3); UREA NITROGEN (BUN) 34 mg/dL (9-23)
[2017-12-31] VITALS (7 sets, daily range): BP systolic 109–129; BP diastolic 66–78
[2017-12-31 02:24] LABS: HEMATOCRIT 24.2 % (36.0-46.0); HEMOGLOBIN 7.8 G/DL (11.9-15.5); MCV 92.4 FL (83-99)
[2017-12-31 05:50] LABS: HEMATOCRIT 24.8 % (36.0-46.0); HEMOGLOBIN 7.9 G/DL (11.9-15.5); MCH 29.4 PG (29.0-34.0); MCHC 31.9 G/DL (30.0-36.0); MCV 92.2 FL (83-99); NRBC (%) 0.6 /100 WBC (0-0); PLATELET COUNT 132 K/uL (156-360); RBC DIS.WIDTH-CV 21.7 % (11.8-14.6); RBC DIS.WIDTH-SD 69.6 % (39-53); RED BLOOD COUNT 2.69 M/uL (3.80-5.20); WHITE BLOOD COUNT 22.3 K/uL (4.1-10.2)
[2017-12-31 06:25] LABS: ALBUMIN 3.5 G/DL (3.2-4.8); ALKALINE PHOSPHATASE 164 IU/L (3-129); ALT (GPT) 23 IU/L (3-49); AST (GOT) 31 IU/L (2-34); CHLORIDE 109 MEQ/L (99-109); GFR ESTIMATE (CALCULATED) > 59 mL/min/; GLUCOSE 158 mg/dL (70-99); PHOSPHORUS 2.5 mg/dL (2.5-4.9); SODIUM 154 MEQ/L (136-147); TOTAL PROTEIN 4.9 G/DL (6.4-8.3); UREA NITROGEN (BUN) 35 mg/dL (9-23)
[2017-12-31 06:31] LABS: POTASSIUM 3.1 MEQ/L (3.7-5.4)
[2017-12-31 07:23] LABS: ABS NEUTROPHIL COUNT 20.3; BAND NEUTROPHILS 4.4 % (0-8.0); BASOPHILS 0.9 %; EOSINOPHIL ABS CT 0; LYMPHOCYTES 6.2 % (15.0-45.0); METAMYELOCYTES 0.9 %; MONOCYTES 0.9 % (0-9.0); NUCLEATED RBC'S 0.9; SEG.NEUTROPHILS 86.7 % (46.0-76.0); SMUDGE CELLS 12.4
[2017-12-31 18:46] LABS: CHLORIDE 113 MEQ/L (99-109); POTASSIUM 2.9 MEQ/L (3.7-5.4); SODIUM 156 MEQ/L (136-147)
[2017-12-31 18:54] LABS: GFR ESTIMATE (CALCULATED) > 59 mL/min/; GLUCOSE 166 mg/dL (70-99); PHOSPHORUS 2.1 mg/dL (2.5-4.9); UREA NITROGEN (BUN) 38 mg/dL (9-23)
[2017-12-31 22:21] LABS: ALBUMIN 3.6 G/DL (3.2-4.8); ALKALINE PHOSPHATASE 148 IU/L (3-129); ALT (GPT) 22 IU/L (3-49); AST (GOT) 27 IU/L (2-34); CHLORIDE 113 MEQ/L (99-109); GFR ESTIMATE (CALCULATED) > 59 mL/min/; GLUCOSE 155 mg/dL (70-99); POTASSIUM 3.1 MEQ/L (3.7-5.4); SODIUM 157 MEQ/L (136-147); TOTAL BILIRUBIN 0.8 MG/DL (0.0-1.0); TOTAL PROTEIN 5.3 G/DL (6.4-8.3); UREA NITROGEN (BUN) 39 mg/dL (9-23)
[2018-01-01] VITALS (28 sets, daily range): BP systolic 62–138; BP diastolic 30–88
[2018-01-01 06:10] LABS: COMMENTS - BLOOD GASES C+; SITE A-LINE
[2018-01-01 06:11] LABS: BASE EXCESS -6.2 mEq/L (-3 to +3); BICARBONATE 15.3 mEq/L (22-26); DEVICE VENT; FI02 30 %; INSPIRATION TIME 0.8 seconds; MECHANICAL RATE 18 resp/min; MODE ACVC+; PCO2 21 mm Hg (35-45); PEEP 5 CM/H20; PO2 162 mm Hg (80-100); TIDAL VOLUME 450 ML; TOTAL RESP RATE 36 resp/min; pH 7.47 (7.35-7.45)
[2018-01-01 06:16] LABS: ALBUMIN 2.7 G/DL (3.2-4.8); ALKALINE PHOSPHATASE 131 IU/L (3-129); ALT (GPT) 18 IU/L (3-49); AST (GOT) 22 IU/L (2-34); CHLORIDE 114 MEQ/L (99-109); GFR ESTIMATE (CALCULATED) > 59 mL/min/; MAGNESIUM 2.1 mg/dl (1.3-2.7); SODIUM 156 MEQ/L (136-147); TOTAL BILIRUBIN 0.7 MG/DL (0.0-1.0); UREA NITROGEN (BUN) 38 mg/dL (9-23)
[2018-01-01 06:23] LABS: GLUCOSE 309 mg/dL (70-99); POTASSIUM 4.6 MEQ/L (3.7-5.4)
[2018-01-01 06:24] LABS: PHOSPHORUS 4.5 mg/dL (2.5-4.9)
[2018-01-01 09:40] LABS: BASE EXCESS -7.2 mEq/L (-3 to +3); BICARBONATE 16.5 mEq/L (22-26); CARBOXY HGB 0.9 % (0-5); COMMENTS - BLOOD GASES C+; DEVICE 980; FI02 30 %; METHEMOGLOBIN 0.7 % (0-1.5); MODE AC; PCO2 26 mm Hg (35-45); PO2 76 mm Hg (80-100); SITE ALINE; pH 7.41 (7.35-7.45)
[2018-01-01 09:41] LABS: INSPIRATORY/EXPIRATORY RATIO 0.8 RATIO; MECHANICAL RATE 22 resp/min; PEEP 5 CM/H20; TIDAL VOLUME 450 ML; TOTAL RESP RATE 28 resp/min
[2018-01-01 09:42] LABS: HEMATOCRIT 23.1 % (36.0-46.0); HEMOGLOBIN 7.8 G/DL (11.9-15.5); MCH 29.3 PG (29.0-34.0); MCHC 33.8 G/DL (30.0-36.0); NRBC (%) 2.1 /100 WBC (0-0); RBC DIS.WIDTH-CV 14.6 % (11.8-14.6); RBC DIS.WIDTH-SD 44.3 % (39-53); RED BLOOD COUNT 2.66 M/uL (3.80-5.20); WHITE BLOOD COUNT 28.1 K/uL (4.1-10.2)
[2018-01-01 09:45] LABS: MCV 86.8 FL (83-99)
[2018-01-01 10:03] LABS: D-DIMER LATEX POSITIVE
[2018-01-01 10:19] LABS: SCHISTOCYTES NONE SEEN
[2018-01-01 10:25] LABS: ABS NEUTROPHIL COUNT 24.2; ANISOCYTOSIS 1+; BAND NEUTROPHILS 12.2 % (0-8.0); BURR CELLS 2+; EOSINOPHIL ABS CT 0; LYMPHOCYTES 7.4 % (15.0-45.0); MACROCYTES 1+; METAMYELOCYTES 3.5 %; MICROCYTOSIS 1+; MONOCYTES 1.8 % (0-9.0); MYELOCYTES 1.3 %; NUCLEATED RBC'S 6.6; PLAT.SUFFICIENCY DECREASED; POIKILOCYTOSIS 3+; POLYCHROMASIA 1+; SEG.NEUTROPHILS 73.8 % (46.0-76.0); SPHEROCYTES 1+; TOX.VACUOLIZATION 1+
[2018-01-01 10:25] LABS: INTER. NORMALIZED RATIO 1.5
[2018-01-01 10:26] LABS: PLATELET COUNT 78 K/uL (156-360)
[2018-01-01 10:27] LABS: VANCOMYCIN, TROUGH 7.2 MCG/ML (10-20)
[2018-01-01 11:19] LABS: FIBRINOGEN 121 mg/dL (150-450); PTT 29.8 SEC (25-37)
[2018-01-01 14:57] LABS: HEMATOCRIT 27.1 % (36.0-46.0); HEMOGLOBIN 9.3 G/DL (11.9-15.5); MCH 28.8 PG (29.0-34.0); MCHC 34.3 G/DL (30.0-36.0); MCV 83.9 FL (83-99); NRBC (%) 2.5 /100 WBC (0-0); PLATELET COUNT 88 K/uL (156-360); RBC DIS.WIDTH-CV 14.9 % (11.8-14.6); RBC DIS.WIDTH-SD 43.1 % (39-53); WHITE BLOOD COUNT 24.4 K/uL (4.1-10.2)
[2018-01-01 15:12] LABS: RED BLOOD COUNT 3.23 M/uL (3.80-5.20)
[2018-01-01 15:20] LABS: CHLORIDE 116 MEQ/L (99-109); CREATININE 0.9 MG/DL (0.6-1.3); GFR ESTIMATE (CALCULATED) > 59 mL/min/; SODIUM 153 MEQ/L (136-147); UREA NITROGEN (BUN) 32 mg/dL (9-23)
[2018-01-01 15:21] LABS: GLUCOSE 131 mg/dL (70-99); POTASSIUM 2.9 MEQ/L (3.7-5.4)
[2018-01-01 22:23] LABS: HEMATOCRIT 24.6 % (36.0-46.0); HEMOGLOBIN 8.8 G/DL (11.9-15.5); MCH 29.7 PG (29.0-34.0); MCHC 35.8 G/DL (30.0-36.0); MCV 83.1 FL (83-99); NRBC (%) 1.8 /100 WBC (0-0); RBC DIS.WIDTH-SD 42.5 % (39-53); RED BLOOD COUNT 2.96 M/uL (3.80-5.20); WHITE BLOOD COUNT 24.1 K/uL (4.1-10.2)
[2018-01-01 22:26] LABS: PLATELET COUNT 121 K/uL (156-360)
[2018-01-01 22:50] LABS: INTER. NORMALIZED RATIO 1.3
[2018-01-01 22:53] LABS: PTT 25.7 SEC (25-37)
[2018-01-02] VITALS (11 sets, daily range): BP systolic 103–126; BP diastolic 55–83
[2018-01-02 05:16] LABS: HEMATOCRIT 22.6 % (36.0-46.0); HEMOGLOBIN 7.9 G/DL (11.9-15.5); MCH 29.7 PG (29.0-34.0); NRBC (%) 1.8 /100 WBC (0-0); PLATELET COUNT 130 K/uL (156-360); RBC DIS.WIDTH-CV 16.4 % (11.8-14.6); RBC DIS.WIDTH-SD 44.7 % (39-53); RED BLOOD COUNT 2.66 M/uL (3.80-5.20); WHITE BLOOD COUNT 22.8 K/uL (4.1-10.2)
[2018-01-02 05:22] LABS: BASOPHIL (%) 0.1 % (0-1); EOSINOPHIL (%) 0 % (0-5); HEMATOCRIT 22.3 % (36.0-46.0); HEMOGLOBIN 7.8 G/DL (11.9-15.5); IMMATURE GRANULOCYTE (%) 2.9 % (0.0-0.7); LYMPHOCYTE (%) 7.2 % (15-42); LYMPHOCYTE COUNT 1.6 K/uL (1.0-2.8); MCH 29.9 PG (29.0-34.0); MCV 85.4 FL (83-99); MONOCYTE (%) 3.1 % (3-12); MONOCYTE COUNT 0.7 K/uL (0-0.8); NEUTROPHIL (%) 86.7 % (45-76); NEUTROPHIL COUNT 19.7 K/uL (1.8-6.4); NRBC (%) 1.8 /100 WBC (0-0); PLATELET COUNT 126 K/uL (156-360); RBC DIS.WIDTH-CV 16.6 % (11.8-14.6); RBC DIS.WIDTH-SD 45.4 % (39-53); RED BLOOD COUNT 2.61 M/uL (3.80-5.20); WHITE BLOOD COUNT 22.7 K/uL (4.1-10.2)
[2018-01-02 05:27] LABS: INTER. NORMALIZED RATIO 1.3
[2018-01-02 05:30] LABS: PTT 25.5 SEC (25-37)
[2018-01-02 06:07] LABS: ALBUMIN 2.9 G/DL (3.2-4.8); ALT (GPT) 27 IU/L (3-49); CHLORIDE 116 MEQ/L (99-109); CREATININE 0.9 MG/DL (0.6-1.3); GFR ESTIMATE (CALCULATED) > 59 mL/min/; GLUCOSE 132 mg/dL (70-99); MAGNESIUM 1.8 mg/dl (1.3-2.7); POTASSIUM 3.2 MEQ/L (3.7-5.4); SODIUM 155 MEQ/L (136-147); TOTAL BILIRUBIN 0.8 MG/DL (0.0-1.0); TOTAL PROTEIN 4.4 G/DL (6.4-8.3); UREA NITROGEN (BUN) 32 mg/dL (9-23)
[2018-01-02 06:12] LABS: ALKALINE PHOSPHATASE 82 IU/L (3-129); AST (GOT) 35 IU/L (2-34); PHOSPHORUS 2.4 mg/dL (2.5-4.9)
[2018-01-02 09:56] LABS: QUANTITATIVE HCG < 4.0 MIU/ML
[2018-01-02 10:05] LABS: INTER. NORMALIZED RATIO 1.3
[2018-01-02 10:07] LABS: PTT 24.4 SEC (25-37)
[2018-01-02 10:17] LABS: HEMATOCRIT 27.6 % (36.0-46.0); MCH 30.5 PG (29.0-34.0); MCHC 35.5 G/DL (30.0-36.0); NRBC (%) 2.1 /100 WBC (0-0); PLATELET COUNT 139 K/uL (156-360); WHITE BLOOD COUNT 21.5 K/uL (4.1-10.2)
[2018-01-02 10:19] LABS: HEMOGLOBIN 9.8 G/DL (11.9-15.5); RED BLOOD COUNT 3.21 M/uL (3.80-5.20)
[2018-01-02 11:34] LABS: STOOL OCCULT BLD 1ST SPECIMEN NEGATIVE
[2018-01-02 15:45] LABS: HEMATOCRIT 27.4 % (36.0-46.0); HEMOGLOBIN 9.9 G/DL (11.9-15.5); MCH 30.4 PG (29.0-34.0); MCHC 36.1 G/DL (30.0-36.0); NRBC (%) 1.6 /100 WBC (0-0); PLATELET COUNT 132 K/uL (156-360); RBC DIS.WIDTH-CV 15.4 % (11.8-14.6); RBC DIS.WIDTH-SD 45.1 % (39-53); RED BLOOD COUNT 3.26 M/uL (3.80-5.20); WHITE BLOOD COUNT 23.1 K/uL (4.1-10.2)
[2018-01-02 15:51] LABS: INTER. NORMALIZED RATIO 1.2
[2018-01-02 21:40] LABS: HEMATOCRIT 28.3 % (36.0-46.0); HEMOGLOBIN 10.1 G/DL (11.9-15.5); MCHC 35.7 G/DL (30.0-36.0); NRBC (%) 1.1 /100 WBC (0-0); PLATELET COUNT 140 K/uL (156-360); RBC DIS.WIDTH-CV 15.8 % (11.8-14.6); RBC DIS.WIDTH-SD 45.1 % (39-53); RED BLOOD COUNT 3.37 M/uL (3.80-5.20); WHITE BLOOD COUNT 23.5 K/uL (4.1-10.2)
[2018-01-02 21:45] LABS: INTER. NORMALIZED RATIO 1.2
[2018-01-02 21:48] LABS: PTT 23.9 SEC (25-37)
[2018-01-03] VITALS (16 sets, daily range): BP systolic 106–134; BP diastolic 64–81
[2018-01-03 04:36] LABS: HEMATOCRIT 27.6 % (36.0-46.0); HEMOGLOBIN 9.9 G/DL (11.9-15.5); MCH 30.3 PG (29.0-34.0); MCHC 35.9 G/DL (30.0-36.0); MCV 84.4 FL (83-99); PLATELET COUNT 138 K/uL (156-360); RBC DIS.WIDTH-CV 15.8 % (11.8-14.6); RBC DIS.WIDTH-SD 46.1 % (39-53); RED BLOOD COUNT 3.27 M/uL (3.80-5.20); WHITE BLOOD COUNT 20.6 K/uL (4.1-10.2)
[2018-01-03 04:41] LABS: INTER. NORMALIZED RATIO 1.2
[2018-01-03 04:44] LABS: PTT 23.6 SEC (25-37)
[2018-01-03 04:47] LABS: POTASSIUM 3.3 mEq/L (3.7-5.4); SODIUM 151 mEq/L (136-147)
[2018-01-03 04:49] LABS: GLUCOSE 160 mg/dL (70-99)
[2018-01-03 04:52] LABS: CHLORIDE 117 mEq/L (99-109)
[2018-01-03 04:53] LABS: CREATININE 0.9 mg/dL (0.6-1.3); GFR ESTIMATE (CALCULATED) > 59 mL/min/
[2018-01-03 04:54] LABS: UREA NITROGEN (BUN) 37 mg/dL (9-23)
[2018-01-03 10:23] LABS: DEVICE VENT; FI02 30 %; MODE TC; SITE ALINE; TOTAL RESP RATE 18 resp/min
[2018-01-03 10:24] LABS: BICARBONATE 27.4 mEq/L (22-26); CARBOXY HGB 0.8 % (0-5); O2 SATURATION (CALCULATED) 95.8 % (95-99); PCO2 36 mm Hg (35-45); PO2 112 mm Hg (80-100); pH 7.49 (7.35-7.45)
[2018-01-03 10:25] LABS: HEMATOCRIT 29.2 % (36.0-46.0); HEMOGLOBIN 10.4 G/DL (11.9-15.5); MCH 30.5 PG (29.0-34.0); MCHC 35.6 G/DL (30.0-36.0); MCV 85.6 FL (83-99); NRBC (%) 0.8 /100 WBC (0-0); PLATELET COUNT 155 K/uL (156-360); RBC DIS.WIDTH-CV 16.4 % (11.8-14.6); RBC DIS.WIDTH-SD 48.1 % (39-53); RED BLOOD COUNT 3.41 M/uL (3.80-5.20); WHITE BLOOD COUNT 22.7 K/uL (4.1-10.2)
[2018-01-03 10:32] LABS: INTER. NORMALIZED RATIO 1.1
[2018-01-03 10:35] LABS: PTT 23.6 SEC (25-37)
[2018-01-03 16:30] LABS: HEMATOCRIT 33.5 % (36.0-46.0); HEMOGLOBIN 11.5 G/DL (11.9-15.5); MCH 29.9 PG (29.0-34.0); MCHC 34.3 G/DL (30.0-36.0); NRBC (%) 0.6 /100 WBC (0-0); PLATELET COUNT 156 K/uL (156-360); RBC DIS.WIDTH-CV 17.3 % (11.8-14.6); RBC DIS.WIDTH-SD 49.9 % (39-53); RED BLOOD COUNT 3.85 M/uL (3.80-5.20); WHITE BLOOD COUNT 23.4 K/uL (4.1-10.2)
[2018-01-03 18:20] LABS: INTER. NORMALIZED RATIO 1.1
[2018-01-03 18:22] LABS: PTT 25.3 SEC (25-37)
[2018-01-03 21:54] LABS: HEMATOCRIT 29.6 % (36.0-46.0); HEMOGLOBIN 10.4 G/DL (11.9-15.5); MCH 30.1 PG (29.0-34.0); MCHC 35.1 G/DL (30.0-36.0); MCV 85.8 FL (83-99); NRBC (%) 0.5 /100 WBC (0-0); PLATELET COUNT 164 K/uL (156-360); RBC DIS.WIDTH-CV 16.4 % (11.8-14.6); RED BLOOD COUNT 3.45 M/uL (3.80-5.20); WHITE BLOOD COUNT 21.1 K/uL (4.1-10.2)
[2018-01-03 22:08] LABS: INTER. NORMALIZED RATIO 1.1
[2018-01-03 22:21] LABS: PTT 20.3 SEC (25-37)
[2018-01-04] VITALS (17 sets, daily range): BP systolic 110–141; BP diastolic 64–88
[2018-01-04 05:39] LABS: HEMATOCRIT 30.3 % (36.0-46.0); HEMOGLOBIN 10.1 G/DL (11.9-15.5); MCH 30.1 PG (29.0-34.0); MCHC 33.3 G/DL (30.0-36.0); NRBC (%) 0.6 /100 WBC (0-0); PLATELET COUNT 173 K/uL (156-360); RBC DIS.WIDTH-CV 17.2 % (11.8-14.6); RBC DIS.WIDTH-SD 52.3 % (39-53); RED BLOOD COUNT 3.36 M/uL (3.80-5.20); WHITE BLOOD COUNT 17.9 K/uL (4.1-10.2)
[2018-01-04 05:41] LABS: MCV 90.2 FL (83-99)
[2018-01-04 06:09] LABS: CHLORIDE 114 MEQ/L (99-109); CREATININE 0.7 MG/DL (0.6-1.3); GFR ESTIMATE (CALCULATED) > 59 mL/min/; POTASSIUM 3.7 MEQ/L (3.7-5.4); SODIUM 150 MEQ/L (136-147); UREA NITROGEN (BUN) 30 mg/dL (9-23)
[2018-01-04 06:12] LABS: GLUCOSE 99 mg/dL (70-99)
[2018-01-05] VITALS (19 sets, daily range): BP systolic 112–157; BP diastolic 66–99
[2018-01-05 05:50] LABS: CHLORIDE 115 MEQ/L (99-109); CREATININE 0.7 MG/DL (0.6-1.3); GFR ESTIMATE (CALCULATED) > 59 mL/min/; GLUCOSE 115 mg/dL (70-99); POTASSIUM 3.5 MEQ/L (3.7-5.4); SODIUM 153 MEQ/L (136-147); UREA NITROGEN (BUN) 31 mg/dL (9-23)
[2018-01-05 11:07] LABS: BASOPHIL (%) 0.1 % (0-1); EOSINOPHIL (%) 0 % (0-5); HEMATOCRIT 31.2 % (36.0-46.0); HEMOGLOBIN 10.1 G/DL (11.9-15.5); IMMATURE GRANULOCYTE (%) 0.7 % (0.0-0.7); LYMPHOCYTE (%) 3.9 % (15-42); LYMPHOCYTE COUNT 0.5 K/uL (1.0-2.8); MCH 29.8 PG (29.0-34.0); MCHC 32.4 G/DL (30.0-36.0); MONOCYTE (%) 3.9 % (3-12); MONOCYTE COUNT 0.5 K/uL (0-0.8); NEUTROPHIL (%) 91.4 % (45-76); NEUTROPHIL COUNT 12.4 K/uL (1.8-6.4); NRBC (%) 0.4 /100 WBC (0-0); PLATELET COUNT 219 K/uL (156-360); RBC DIS.WIDTH-CV 18.2 % (11.8-14.6); RBC DIS.WIDTH-SD 54.4 % (39-53); RED BLOOD COUNT 3.39 M/uL (3.80-5.20); WHITE BLOOD COUNT 13.6 K/uL (4.1-10.2)
[2018-01-06] VITALS (8 sets, daily range): BP systolic 111–148; BP diastolic 69–97
[2018-01-06 05:49] LABS: BASOPHIL (%) 0.1 % (0-1); EOSINOPHIL (%) 0 % (0-5); HEMATOCRIT 29.3 % (36.0-46.0); HEMOGLOBIN 9.6 G/DL (11.9-15.5); IMMATURE GRANULOCYTE (%) 0.9 % (0.0-0.7); LYMPHOCYTE (%) 6.8 % (15-42); LYMPHOCYTE COUNT 0.8 K/uL (1.0-2.8); MCH 29.9 PG (29.0-34.0); MCHC 32.8 G/DL (30.0-36.0); MCV 91.3 FL (83-99); MONOCYTE (%) 7.4 % (3-12); MONOCYTE COUNT 0.9 K/uL (0-0.8); NEUTROPHIL (%) 84.8 % (45-76); NEUTROPHIL COUNT 9.8 K/uL (1.8-6.4); NRBC (%) 0.2 /100 WBC (0-0); PLATELET COUNT 234 K/uL (156-360); RBC DIS.WIDTH-CV 18.6 % (11.8-14.6); RBC DIS.WIDTH-SD 53.4 % (39-53); RED BLOOD COUNT 3.21 M/uL (3.80-5.20); WHITE BLOOD COUNT 11.5 K/uL (4.1-10.2)
[2018-01-06 06:15] LABS: ALBUMIN 2.9 G/DL (3.2-4.8); ALKALINE PHOSPHATASE 84 IU/L (3-129); ALT (GPT) 24 IU/L (3-49); AST (GOT) 20 IU/L (2-34); CHLORIDE 114 MEQ/L (99-109); CREATININE 0.6 MG/DL (0.6-1.3); GFR ESTIMATE (CALCULATED) > 59 mL/min/; GLUCOSE 109 mg/dL (70-99); MAGNESIUM 1.9 mg/dl (1.3-2.7); SODIUM 150 MEQ/L (136-147); TOTAL BILIRUBIN 0.9 MG/DL (0.0-1.0); TOTAL PROTEIN 4.5 G/DL (6.4-8.3); UREA NITROGEN (BUN) 26 mg/dL (9-23)
[2018-01-06 06:48] LABS: PHOSPHORUS 4.9 mg/dL (2.5-4.9); POTASSIUM 2.7 MEQ/L (3.7-5.4)
[2018-01-06 16:40] LABS: CHLORIDE 115 MEQ/L (99-109); CREATININE 0.7 MG/DL (0.6-1.3); GFR ESTIMATE (CALCULATED) > 59 mL/min/; GLUCOSE 109 mg/dL (70-99); POTASSIUM 3.1 MEQ/L (3.7-5.4); SODIUM 150 MEQ/L (136-147); UREA NITROGEN (BUN) 24 mg/dL (9-23)
[2018-01-07 04:30] VITALS: BP 128/86
[2018-01-07 05:59] LABS: BASOPHIL (%) 0.1 % (0-1); EOSINOPHIL (%) 0 % (0-5); LYMPHOCYTE (%) 4.5 % (15-42); LYMPHOCYTE COUNT 0.5 K/uL (1.0-2.8); MCH 30.6 PG (29.0-34.0); MCHC 33.6 G/DL (30.0-36.0); MCV 91.1 FL (83-99); MONOCYTE (%) 4.5 % (3-12); MONOCYTE COUNT 0.5 K/uL (0-0.8); NEUTROPHIL (%) 89.9 % (45-76); NEUTROPHIL COUNT 10.9 K/uL (1.8-6.4); PLATELET COUNT 207 K/uL (156-360); RBC DIS.WIDTH-CV 19.4 % (11.8-14.6); RBC DIS.WIDTH-SD 54.1 % (39-53); WHITE BLOOD COUNT 12.1 K/uL (4.1-10.2)
[2018-01-07 06:00] LABS: HEMOGLOBIN 13.1 G/DL (11.9-15.5); RED BLOOD COUNT 4.28 M/uL (3.80-5.20)
[2018-01-07 06:36] LABS: ALBUMIN 3.5 G/DL (3.2-4.8); ALKALINE PHOSPHATASE 101 IU/L (3-129); ALT (GPT) 30 IU/L (3-49); AST (GOT) 26 IU/L (2-34); CHLORIDE 112 MEQ/L (99-109); CREATININE 0.7 MG/DL (0.6-1.3); GFR ESTIMATE (CALCULATED) > 59 mL/min/; GLUCOSE 93 mg/dL (70-99); MAGNESIUM 1.9 mg/dl (1.3-2.7); SODIUM 149 MEQ/L (136-147); UREA NITROGEN (BUN) 24 mg/dL (9-23)
[2018-01-07 06:38] LABS: TOTAL BILIRUBIN 1.3 MG/DL (0.0-1.0); TOTAL PROTEIN 5.3 G/DL (6.4-8.3)
[2018-01-07 09:00] VITALS: BP 130/78
[2018-01-07 14:00] VITALS: BP 133/87
[2018-01-08 07:01] LABS: BASOPHIL (%) 0.1 % (0-1); EOSINOPHIL (%) 0 % (0-5); HEMATOCRIT 31.4 % (36.0-46.0); IMMATURE GRANULOCYTE (%) 0.5 % (0.0-0.7); LYMPHOCYTE (%) 8.3 % (15-42); LYMPHOCYTE COUNT 0.8 K/uL (1.0-2.8); MCH 30.7 PG (29.0-34.0); MCHC 33.8 G/DL (30.0-36.0); MONOCYTE (%) 7.7 % (3-12); MONOCYTE COUNT 0.8 K/uL (0-0.8); NEUTROPHIL (%) 83.4 % (45-76); NEUTROPHIL COUNT 8.5 K/uL (1.8-6.4); NRBC (%) 0.2 /100 WBC (0-0); RBC DIS.WIDTH-CV 19.2 % (11.8-14.6); RBC DIS.WIDTH-SD 54.5 % (39-53); RED BLOOD COUNT 3.45 M/uL (3.80-5.20); WHITE BLOOD COUNT 10.1 K/uL (4.1-10.2)
[2018-01-08 07:19] LABS: HEMOGLOBIN 10.6 G/DL (11.9-15.5)
[2018-01-08 07:26] LABS: PLAT.SUFFICIENCY ADEQUATE; PLATELET COUNT 257 K/uL (156-360)
[2018-01-08 07:33] LABS: ALBUMIN 3.4 G/DL (3.2-4.8); ALKALINE PHOSPHATASE 91 IU/L (3-129); ALT (GPT) 27 IU/L (3-49); AST (GOT) 28 IU/L (2-34); CHLORIDE 113 MEQ/L (99-109); CREATININE 0.6 MG/DL (0.6-1.3); GFR ESTIMATE (CALCULATED) > 59 mL/min/; GLUCOSE 80 mg/dL (70-99); MAGNESIUM 1.8 mg/dl (1.3-2.7); POTASSIUM 2.9 MEQ/L (3.7-5.4); SODIUM 148 MEQ/L (136-147); TOTAL BILIRUBIN 1.2 MG/DL (0.0-1.0); TOTAL PROTEIN 5.1 G/DL (6.4-8.3); UREA NITROGEN (BUN) 23 mg/dL (9-23)
[2018-01-08 07:40] LABS: PHOSPHORUS 4.2 mg/dL (2.5-4.9)
[2018-01-08 09:00] VITALS: BP 128/85
[2018-01-08 12:00] VITALS: BP 133/84
[2018-01-08 19:59] VITALS: BP 131/80
[2018-01-08 23:35] VITALS: BP 123/79
[2018-01-09 03:48] VITALS: BP 141/92
[2018-01-09 04:58] LABS: BASOPHIL (%) 0.1 % (0-1); EOSINOPHIL (%) 0 % (0-5); HEMOGLOBIN 10.1 G/DL (11.9-15.5); IMMATURE GRANULOCYTE (%) 0.4 % (0.0-0.7); LYMPHOCYTE (%) 3.8 % (15-42); LYMPHOCYTE COUNT 0.3 K/uL (1.0-2.8); MCH 30.4 PG (29.0-34.0); MCHC 32.6 G/DL (30.0-36.0); MCV 93.4 FL (83-99); MONOCYTE (%) 2.6 % (3-12); MONOCYTE COUNT 0.2 K/uL (0-0.8); NEUTROPHIL (%) 93.1 % (45-76); NEUTROPHIL COUNT 8.3 K/uL (1.8-6.4); PLATELET COUNT 297 K/uL (156-360); RBC DIS.WIDTH-CV 19.8 % (11.8-14.6); RBC DIS.WIDTH-SD 60.1 % (39-53); RED BLOOD COUNT 3.32 M/uL (3.80-5.20)
[2018-01-09 06:12] LABS: ALBUMIN 3.1 G/DL (3.2-4.8); ALKALINE PHOSPHATASE 85 IU/L (3-129); ALT (GPT) 26 IU/L (3-49); AST (GOT) 27 IU/L (2-34); CHLORIDE 112 MEQ/L (99-109); CREATININE 0.5 MG/DL (0.6-1.3); GFR ESTIMATE (CALCULATED) > 59 mL/min/; MAGNESIUM 1.8 mg/dl (1.3-2.7); PHOSPHORUS 3.1 mg/dL (2.5-4.9); POTASSIUM 3.7 MEQ/L (3.7-5.4); SODIUM 147 MEQ/L (136-147); TOTAL PROTEIN 4.9 G/DL (6.4-8.3); UREA NITROGEN (BUN) 20 mg/dL (9-23)
[2018-01-09 06:19] LABS: GLUCOSE 118 mg/dL (70-99)
[2018-01-09 07:40] VITALS: BP 131/93
[2018-01-09 11:20] VITALS: BP 139/87
[2018-01-09 14:17] VITALS: BP 127/82
[2018-01-09 20:32] VITALS: BP 124/68
[2018-01-10 00:29] VITALS: BP 148/88
[2018-01-10 06:04] LABS: BASOPHIL (%) 0 % (0-1); EOSINOPHIL (%) 0 % (0-5); HEMATOCRIT 31.3 % (36.0-46.0); HEMOGLOBIN 10.2 G/DL (11.9-15.5); IMMATURE GRANULOCYTE (%) 0.5 % (0.0-0.7); LYMPHOCYTE (%) 6.3 % (15-42); LYMPHOCYTE COUNT 0.5 K/uL (1.0-2.8); MCH 30.4 PG (29.0-34.0); MCHC 32.6 G/DL (30.0-36.0); MCV 93.2 FL (83-99); MONOCYTE (%) 4.6 % (3-12); MONOCYTE COUNT 0.4 K/uL (0-0.8); NEUTROPHIL (%) 88.6 % (45-76); NRBC (%) 0.3 /100 WBC (0-0); PLATELET COUNT 289 K/uL (156-360); RBC DIS.WIDTH-CV 19.7 % (11.8-14.6); RBC DIS.WIDTH-SD 62.5 % (39-53); RED BLOOD COUNT 3.36 M/uL (3.80-5.20); WHITE BLOOD COUNT 7.9 K/uL (4.1-10.2)
[2018-01-10 06:28] LABS: ALBUMIN 3.4 G/DL (3.2-4.8); ALKALINE PHOSPHATASE 92 IU/L (3-129); ALT (GPT) 24 IU/L (3-49); AST (GOT) 26 IU/L (2-34); CHLORIDE 112 MEQ/L (99-109); CREATININE 0.5 MG/DL (0.6-1.3); GFR ESTIMATE (CALCULATED) > 59 mL/min/; GLUCOSE 112 mg/dL (70-99); MAGNESIUM 1.7 mg/dl (1.3-2.7); PHOSPHORUS 3.3 mg/dL (2.5-4.9); SODIUM 143 MEQ/L (136-147); TOTAL PROTEIN 5.1 G/DL (6.4-8.3); UREA NITROGEN (BUN) 21 mg/dL (9-23)
[2018-01-10 07:30] VITALS: BP 152/90
[2018-01-10 12:00] VITALS: BP 132/72
[2018-01-10 16:22] VITALS: BP 140/68
[2018-01-10 19:41] VITALS: BP 132/92
[2018-01-11 01:10] VITALS: BP 139/75
[2018-01-11 04:19] VITALS: BP 140/80
[2018-01-11 06:59] LABS: BASOPHIL (%) 0 % (0-1); EOSINOPHIL (%) 0 % (0-5); HEMATOCRIT 33.9 % (36.0-46.0); HEMOGLOBIN 10.8 G/DL (11.9-15.5); IMMATURE GRANULOCYTE (%) 0.5 % (0.0-0.7); LYMPHOCYTE (%) 7.6 % (15-42); LYMPHOCYTE COUNT 0.6 K/uL (1.0-2.8); MCH 30.2 PG (29.0-34.0); MCHC 31.9 G/DL (30.0-36.0); MCV 94.7 FL (83-99); MONOCYTE COUNT 0.4 K/uL (0-0.8); NEUTROPHIL (%) 86.9 % (45-76); PLATELET COUNT 324 K/uL (156-360); RBC DIS.WIDTH-CV 20.3 % (11.8-14.6); RBC DIS.WIDTH-SD 65.6 % (39-53); RED BLOOD COUNT 3.58 M/uL (3.80-5.20); WHITE BLOOD COUNT 8.1 K/uL (4.1-10.2)
[2018-01-11 07:52] LABS: ALBUMIN 3.3 G/DL (3.2-4.8); ALKALINE PHOSPHATASE 111 IU/L (3-129); ALT (GPT) 28 IU/L (3-49); AST (GOT) 36 IU/L (2-34); CHLORIDE 112 MEQ/L (99-109); CREATININE 0.5 MG/DL (0.6-1.3); GFR ESTIMATE (CALCULATED) > 59 mL/min/; GLUCOSE 100 mg/dL (70-99); MAGNESIUM 1.8 mg/dl (1.3-2.7); PHOSPHORUS 2.5 mg/dL (2.5-4.9); POTASSIUM 3.8 MEQ/L (3.7-5.4); SODIUM 144 MEQ/L (136-147); TOTAL PROTEIN 5.4 G/DL (6.4-8.3); UREA NITROGEN (BUN) 22 mg/dL (9-23)
[2018-01-11 08:01] VITALS: BP 132/98
[2018-01-11 15:19] VITALS: BP 153/94
[2018-01-12 00:10] VITALS: BP 141/84
[2018-01-12 06:48] LABS: BASOPHIL (%) 0 % (0-1); EOSINOPHIL (%) 0 % (0-5); HEMATOCRIT 30.2 % (36.0-46.0); HEMOGLOBIN 9.9 G/DL (11.9-15.5); IMMATURE GRANULOCYTE (%) 0.3 % (0.0-0.7); LYMPHOCYTE (%) 3.3 % (15-42); LYMPHOCYTE COUNT 0.2 K/uL (1.0-2.8); MCH 30.8 PG (29.0-34.0); MCHC 32.8 G/DL (30.0-36.0); MCV 94.1 FL (83-99); MONOCYTE (%) 3.3 % (3-12); MONOCYTE COUNT 0.2 K/uL (0-0.8); NEUTROPHIL (%) 93.1 % (45-76); NEUTROPHIL COUNT 6.5 K/uL (1.8-6.4); NRBC (%) 1.9 /100 WBC (0-0); PLATELET COUNT 321 K/uL (156-360); RBC DIS.WIDTH-SD 65.8 % (39-53); RED BLOOD COUNT 3.21 M/uL (3.80-5.20)
[2018-01-12 07:14] LABS: ALKALINE PHOSPHATASE 91 IU/L (3-129); ALT (GPT) 28 IU/L (3-49); AST (GOT) 32 IU/L (2-34); CHLORIDE 112 MEQ/L (99-109); CREATININE 0.5 MG/DL (0.6-1.3); GFR ESTIMATE (CALCULATED) > 59 mL/min/; GLUCOSE 105 mg/dL (70-99); MAGNESIUM 1.8 mg/dl (1.3-2.7); POTASSIUM 3.9 MEQ/L (3.7-5.4); SODIUM 143 MEQ/L (136-147); TOTAL BILIRUBIN 0.9 MG/DL (0.0-1.0); UREA NITROGEN (BUN) 21 mg/dL (9-23)
[2018-01-12 08:13] VITALS: BP 153/70
[2018-01-12 11:52] VITALS: BP 147/98
[2018-01-12 16:03] VITALS: BP 149/113
[2018-01-13 00:28] VITALS: BP 134/84
[2018-01-13 06:50] LABS: BASOPHIL (%) 0.1 % (0-1); EOSINOPHIL (%) 0 % (0-5); HEMATOCRIT 30.5 % (36.0-46.0); HEMOGLOBIN 9.9 G/DL (11.9-15.5); IMMATURE GRANULOCYTE (%) 0.8 % (0.0-0.7); LYMPHOCYTE (%) 3.7 % (15-42); LYMPHOCYTE COUNT 0.3 K/uL (1.0-2.8); MCH 30.7 PG (29.0-34.0); MCHC 32.5 G/DL (30.0-36.0); MCV 94.4 FL (83-99); MONOCYTE (%) 3.5 % (3-12); MONOCYTE COUNT 0.3 K/uL (0-0.8); NEUTROPHIL (%) 91.9 % (45-76); NEUTROPHIL COUNT 7.7 K/uL (1.8-6.4); PLATELET COUNT 322 K/uL (156-360); RBC DIS.WIDTH-CV 20.6 % (11.8-14.6); RBC DIS.WIDTH-SD 66.8 % (39-53); RED BLOOD COUNT 3.23 M/uL (3.80-5.20); WHITE BLOOD COUNT 8.4 K/uL (4.1-10.2)
[2018-01-13 07:23] LABS: ALBUMIN 3.4 G/DL (3.2-4.8); ALKALINE PHOSPHATASE 98 IU/L (3-129); ALT (GPT) 24 IU/L (3-49); AST (GOT) 26 IU/L (2-34); CHLORIDE 112 MEQ/L (99-109); CREATININE 0.5 MG/DL (0.6-1.3); GFR ESTIMATE (CALCULATED) > 59 mL/min/; GLUCOSE 120 mg/dL (70-99); MAGNESIUM 1.8 mg/dl (1.3-2.7); PHOSPHORUS 3.3 mg/dL (2.5-4.9); POTASSIUM 3.9 MEQ/L (3.7-5.4); SODIUM 145 MEQ/L (136-147); TOTAL BILIRUBIN 0.8 MG/DL (0.0-1.0); TOTAL PROTEIN 5.2 G/DL (6.4-8.3); UREA NITROGEN (BUN) 23 mg/dL (9-23)
[2018-01-13 08:16] VITALS: BP 157/96
[2018-01-13 12:16] VITALS: BP 149/98
[2018-01-13] MEDS ORDERED: SUBOXONE 2 MG-1 EACH PO (14:36)
[2018-01-13 15:58] VITALS: BP 160/92
[2018-01-13 20:45] VITALS: BP 160/85
[2018-01-14 00:48] VITALS: BP 165/82
[2018-01-14 05:03] VITALS: BP 164/74
[2018-01-14 08:14] VITALS: BP 154/94
[2018-01-14] MEDS ORDERED: FLUCONAZOLE200 MG PO (09:46)
[2018-01-14] MEDS ORDERED: VANCOCIN HCL125 MG PO (09:46)
[2018-01-14] MEDS ORDERED: DUONEB 2.5-0.5 M3 ML AEROSOL (09:47)
[2018-01-14] MEDS ORDERED: PREDNISONE10 MG PO (09:51)
== END 2018-01-14 12:32 | DRG 870 ==
LOC: EME → EDBD 06:00 → EDOF 06:51 → 2EAST 06:51 → 4WEST 06:51 → ENRESERV 06:53 → 4WEST 08:39 → ENRESERV 01-04 20:17 → CANRESERV 01-04 20:17 → ENRESERV 01-04 20:18 → 4WEST 01-05 17:11 → 4EAST 01-06 01:46 → ENRESERV 01-09 08:33 → 2EAST 01-09 13:50
PROVIDERS: Emergency Medicine; Internal Medicine; Internal Medicine Critical Care Medicine; Internal Medicine Hematology & Oncology; Internal Medicine Infectious Disease; Internal Medicine Nephrology; Specialist; Surgery
PROC: 0BH17EZ Insertion of Endotracheal Airway into Trachea, Via Natural or Artificial Opening (ICD-10-PCS; principal; 2017-12-23)
PROC: 5A1955Z Respiratory Ventilation, Greater than 96 Consecutive Hours (ICD-10-PCS; principal; 2017-12-23)
PROC: 04HY32Z Insertion of Monitoring Device into Lower Artery, Percutaneous Approach (ICD-10-PCS; principal; 2017-12-23)
PROC: 30233K1 Transfusion of Nonautologous Frozen Plasma into Peripheral Vein, Percutaneous Approach (ICD-10-PCS; 2017-12-23)
PROC: 30233N1 Transfusion of Nonautologous Red Blood Cells into Peripheral Vein, Percutaneous Approach (ICD-10-PCS; 2017-12-26)
PROC: 02H633Z Insertion of Infusion Device into Right Atrium, Percutaneous Approach (ICD-10-PCS; 2017-12-30)
PROC: 30233R1 Transfusion of Nonautologous Platelets into Peripheral Vein, Percutaneous Approach (ICD-10-PCS; 2018-01-01)
PROC: 06HY33Z Insertion of Infusion Device into Lower Vein, Percutaneous Approach (ICD-10-PCS; 2018-01-01)
PROC: 30233M1 Transfusion of Nonautologous Plasma Cryoprecipitate into Peripheral Vein, Percutaneous Approach (ICD-10-PCS; 2018-01-01)
PROC: 02HV33Z Insertion of Infusion Device into Superior Vena Cava, Percutaneous Approach (ICD-10-PCS; 2018-01-08)
PROC: 0CJY8ZZ Inspection of Mouth and Throat, Via Natural or Artificial Opening Endoscopic (ICD-10-PCS; 2018-01-13)
DX: A41.02 Sepsis due to Methicillin resistant Staphylococcus aureus (principal); R65.21 Severe sepsis with septic shock; T80.211A Bloodstream infection due to central venous catheter, initial encounter; B37.7 Candidal sepsis; Y84.8 Other medical procedures as the cause of abnormal reaction of the patient, or of later complication, without mention of misadventure at the time of the procedure; J96.00 Acute respiratory failure, unspecified whether with hypoxia or hypercapnia; D65 Disseminated intravascular coagulation [defibrination syndrome]; N17.9 Acute kidney failure, unspecified; J18.9 Pneumonia, unspecified organism; G93.41 Metabolic encephalopathy; N39.0 Urinary tract infection, site not specified; B96.20 Unspecified Escherichia coli [E. coli] as the cause of diseases classified elsewhere; I82.442 Acute embolism and thrombosis of left tibial vein; L03.116 Cellulitis of left lower limb; A04.72 Enterocolitis due to Clostridium difficile, not specified as recurrent; R57.8 Other shock; K66.1 Hemoperitoneum; T45.515A Adverse effect of anticoagulants, initial encounter; D62 Acute posthemorrhagic anemia; E87.0 Hyperosmolality and hypernatremia; E87.2 Acidosis; E87.6 Hypokalemia; F50.2 Bulimia nervosa; I50.9 Heart failure, unspecified; I73.9 Peripheral vascular disease, unspecified; K90.89 Other intestinal malabsorption; S90.822A Blister (nonthermal), left foot, initial encounter; R49.0 Dysphonia; R13.10 Dysphagia, unspecified; R74.0 Nonspecific elevation of levels of transaminase and lactic acid dehydrogenase [LDH]; Z86.74 Personal history of sudden cardiac arrest; G40.909 Epilepsy, unspecified, not intractable, without status epilepticus; J45.909 Unspecified asthma, uncomplicated; M81.0 Age-related osteoporosis without current pathological fracture; F10.20 Alcohol dependence, uncomplicated; F11.20 Opioid dependence, uncomplicated; F31.9 Bipolar disorder, unspecified; R26.2 Difficulty in walking, not elsewhere classified; Z86.711 Personal history of pulmonary embolism; E66.01 Morbid (severe) obesity due to excess calories; Z68.33 Body mass index [BMI] 33.0-33.9, adult; Z98.84 Bariatric surgery status; Z87.891 Personal history of nicotine dependence; Z96.659 Presence of unspecified artificial knee joint
CPT/HCPCS: 36600; 70450; 71045; 71250; 73700; 73701; 74174; 74230; 80048; 80048 91; 80053; 80076; 80202; 81003; 82140; 82247; 82248; 82272; 82330; 82550; 82607; 82728; 82746; 82784; 82948; 83010 90; 83605; 83615; 83735; 83880; 84100; 84132 91; 84134; 84145 90; 84478; 84484; 84702; 85014; 85018; 85025; 85025 91; 85027; 85378; 85384; 85610; 85730; 86141; 86850; 86860; 86870; 86880; 86900; 86901; 86920; 86965; 87040; 87070; 87075; 87077; 87147; 87149; 87149 59; 87186; 87186 90; 87205; 87493; 87641; 92526 GN; 92610 GN; 92611 GN; 93005; 93306; 93926; 93970; 93971; 94002; 94003; 94640; 94760; 94799; 95819; 97530 GO; 97530 GP; 99281; 99285; A6212; A6214; C1751; C1753; J0610; J0696; J1644; J1720; J1885; J1940; J1953; J2248; J2250; J2370; J2543; J2704; J2720; J2930; J3010; J3370; J3411; J3475; J3480; J7030; J7040; J7050; J7060; J7070; J7120; J7512; P9012; P9016; P9017; P9035; P9040; P9045; P9047; S0028; S0030